=== PATIENT | female | born 1965 | race African-American/Black ===

== ENCOUNTER 2017-01-02 17:14 | Emergency (ER) | payer OTHER ==
--- NOTE | ~2017-01-02 | CT2 ---
[facility] A Service of [facility] RADIOLOGY TEXT RESULTS PATIENT: SUNITHA RODRÍGUEZ LOCATION: [facility] : 61 UNIT #: [id number] AGE: [address]: Martin Rodgers MD SEX: F ORDER DR: [id number] [facility] [place], [place] [address] [id number] MR#: [id number] Acc #: [id number] NAME: SUNITHA RODRÍGUEZ : 1965 SEX: F STUDY DATE/TIME: 01/02/2017 22:12 UNIT: OBED ROOM: STUDY DESCRIPTION: CT Abd and Pelv W Cont Attending Physician: Martin Rodgers M.D. Ordering Physician: Robert Rich M.D. Primary Care Physician: Primary Care Physician No MEDICAL IMAGING REPORT This report is preliminary unless electronic signature is present EXAM CT abdomen and pelvis with contrast INDICATION Left flank pain for the past 9 years. Nausea off and on for the past 9 years. PROCEDURE Contrast-enhanced CT of the abdomen and pelvis. This CT examination was performed with one or more of the following radiation dose reduction techniques: automatic exposure control, adjustment of mA and/or kV according to patient size, and iterative reconstruction. COMPARISON None. FINDINGS ABDOMEN WITH CONTRAST: Included lung bases are clear. 8 mm cyst in the liver at the dome. There is a 7 mm subcapsular segment 4 cyst. There are a few tiny stones in the gallbladder. Spleen enlarged measuring 17.1 cm. The liver has normal size. Liver has normal morphology. Kidneys, adrenal gland, pancreas unremarkable. Moderate colonic stool burden. Appendix is normal. PELVIS WITH CONTRAST: No pelvic mass or fluid. No aggressive appearing bone lesion. IMPRESSION 1. No acute findings. 2. Splenomegaly. [facility] A Service of [facility] RADIOLOGY TEXT RESULTS PATIENT: SUNITHA RODRÍGUEZ LOCATION: [facility] : 61 UNIT #: [id number] AGE: [address]: Martin Rodgers MD SEX: F ORDER DR: 3. Minimal uncomplicated cholelithiasis. Dictated by... Zackery Reyes M.D. THIS IS AN ELECTRONICALLY VERIFIED REPORT Zackery Reyes M.D. at 01/03/2017 10:02 PM LALI/sarah TD: 01/03/2017 05:56 JOB #: [id number] MEDICAL IMAGING REPORT Page 1 of 1 COPY
[2017-01-02 18:18] LABS: URINE SOURCE CLEAN CATCH
[2017-01-02 18:22] LABS: URINE APPEARANCE CLEAR; URINE BLOOD 1+ (NEG); URINE COLOR DK YELLOW; URINE GLUCOSE NEG (NEG); URINE KETONE NEG (NEG); URINE LEUKOCYTE ESTERASE 2+ (NEG); URINE NITRATE NEG (NEG); URINE PH 5.5 (5-8); URINE PROTEIN NEG (NEG); URINE SPECIFIC GRAVITY 1.019 (1.003-1.035)
[2017-01-02 18:25] LABS: CULTURE INDICATED? YES; URINE SQUAMOUS EPITHELIAL CELL OCC /[HPF]
[2017-01-02 18:36] LABS: URINE BILIRUBIN NEG (NEG)
[2017-01-02 18:37] LABS: URBCS1 AUWI 0-2 /[HPF] (0-2); URINE BACTERIA AUWI 1+ (NEGATIVE)
[2017-01-02 20:35] LABS: BASOPHIL% 0.4 % (0-2.5); EOSINOPHIL% 0.6 % (0.0-7.0); HEMATOCRIT 35.9 % (35.0-45.0); HEMOGLOBIN 12.2 gm/dL (12.0-16.0); LYMPHOCYTE# 1.9 X10e3 (1.0-3.5); LYMPHOCYTE% 47.2 % (17.0-45.0); MEAN CELL VOLUME 80.7 FL (83-96); MEAN CORPUSCULAR HEMOGLOBIN 27.4 PG (28-34); MEAN PLATELET VOLUME 7.8 FL (6.5-11.5); MONOCYTE# 0.2 X10e3 (0-1.0); MONOCYTE% 5.3 % (3.0-12.0); NEUTROPHIL# 1.9 X10e3 (1.5-7.1); NEUTROPHIL% 46.5 % (40-75); PLATELET COUNT 134 X10e3 (140-420); RED BLOOD COUNT 4.44 X10e (3.90-5.30); RED CELL DISTRIBUTION WIDTH 16.3 % (11.0-15.5)
[2017-01-02 20:36] LABS: DIFF IND NO
[2017-01-02 20:55] LABS: ALBUMIN SERUM 4.6 g/dL (3.5-5.0); BILIRUBIN, DIRECT 0.2 mg/dL (0.0-0.2); BILIRUBIN,INDIRECT 0.9 mg/dL (0.0-0.9); BILIRUBIN,TOTAL 1.1 mg/dL (0.2-2.0); BUN/CREATININE RATIO 25.71; CALCIUM SERUM 9.6 mg/dL (8.4-10.2); CREATININE SERUM 0.7 mg/dL (0.6-1.4); GLOM FILT RATE Estimated 114.6 mL/min (>60); POTASSIUM 3.3 mmol/L (3.5-5.1); PROTEIN TOTAL SERUM 9.9 g/dL (6.0-8.3)
== END 2017-01-02 23:42 | disposition home or self-care (01) ==
LOC: CED 17:14
PROVIDERS: Emergency Medicine
DX: R16.1 Splenomegaly, not elsewhere classified (principal)
CPT/HCPCS: 36415; 74177; 80048; 80076; 81003; 82150; 83690; 85025; 87086; 96361; 96374; 96375; 99284; J0696; J2270; J2405; Q9967